=== PATIENT | female | born 1940 | race Caucasian/White ===

== ENCOUNTER 2016-09-16 11:16 | Day surgery (SDC) | payer OTHER, MEDICARE ==
[~2016-09-16] VITALS: Ht 170.2 cm; Wt 75.7 kg
[~2016-09-16 11:16] MED LIST: AMARYL4 MG PO; ASPIR 8181 M1 PO; BENTYL20 MG PO; CALTRATE 600 +1 EAC1 PO; CENTRUM SILVER1 EAC4 PO; CIPRO500 MG PO; COZAAR25 MG PO; DICYCLOMINE HCL20 MG PO; FLONASE16 G1 BOTH NARES; GLIMEPIRIDE2 MG PO; GLIMEPIRIDE4 MG PO; GLUCOPHAGE1000 MG PO; JANUMET 50/11 TABLET PO; JANUMET XR 1001 EACH PO; LEVOTHYROXINE50 MCG PO; LOSARTAN POTASS25 MG PO; MECLIZINE HCL25 MG PO; METFORMIN HCL1000 MG PO; METHENAMINE HIPP1 G1 PO; METOPROLOL TART25 MG PO; NAPROSYN500 MG PO; NITROSTAT0.4 MG SL; OMEPRAZOLE20 MG PO; PRAVACHOL80 MG PO; PRAVASTATIN SOD80 MG PO; PRILOSEC20 MG PO; REFRESH EYE DR1 EACH BOTH EYES; REFRESH TEARS15 ML BOTH EYES; REQUIP0.25 MG PO; SYNTHROID50 MCG PO; TYLENOL EXTRA500 MG PO; VALIUM5 MG PO; ZOFRAN4 MG PO
[2016-09-16] MEDS ORDERED: JANUMET 50/11 TABLET PO (12:30)
[2016-09-16] MEDS ORDERED: VITAMIN D-32000 UNI2 PO (12:31)
[2016-09-16] MEDS ORDERED: CITRACAL + D C1 EACH PO (12:32)
[2016-09-16] MEDS ORDERED: TRIPLE MAGNESI400 MG PO (12:33)
[2016-09-16 12:37] LABS: POINT-OF-CARE METER ID UU13113696
[2016-09-16 14:47] LABS: POINT-OF-CARE METER ID UU13113819
[2016-09-16 16:33] VITALS: BP 125/58
[2016-09-16 16:38] VITALS: BP 125/58
[2016-09-16 16:45] VITALS: BP 125/58
[2016-09-16 18:05] LABS: POINT-OF-CARE METER ID UU13113698
[2016-09-16 19:06] VITALS: BP 113/57
[2016-09-16 21:26] LABS: POINT-OF-CARE METER ID UU13113698
[2016-09-16 23:43] VITALS: BP 110/58
[2016-09-17 05:00] VITALS: BP 115/56
[2016-09-17 07:30] VITALS: BP 122/63
[2016-09-17 07:48] LABS: POINT-OF-CARE METER ID UU13113698
== END 2016-09-17 11:45 | disposition home or self-care (01) ==
LOC: CATH 11:16 → 2SOUTH 14:11 → 4EAST 14:11 → 2SOUTH 14:11 → 4EAST 16:15
PROVIDERS: Internal Medicine Cardiovascular Disease
DX: R07.9 Chest pain, unspecified (principal); I25.10 Atherosclerotic heart disease of native coronary artery without angina pectoris; I25.82 Chronic total occlusion of coronary artery; R00.2 Palpitations; R00.0 Tachycardia, unspecified; E11.9 Type 2 diabetes mellitus without complications; I10 Essential (primary) hypertension; E78.00 Pure hypercholesterolemia, unspecified; Z86.718 Personal history of other venous thrombosis and embolism; R06.09 Other forms of dyspnea; M54.2 Cervicalgia; R94.39 Abnormal result of other cardiovascular function study; E03.9 Hypothyroidism, unspecified; K58.9 Irritable bowel syndrome, unspecified; I34.1 Nonrheumatic mitral (valve) prolapse; Z79.82 Long term (current) use of aspirin; Z79.4 Long term (current) use of insulin; Z87.891 Personal history of nicotine dependence
CPT/HCPCS: 82948; 85347; C1769; C1887; G0378; J0153; J1200; J1644; J1815; J2250; J2405; J3010; J7040

== ENCOUNTER 2017-06-23 11:19 | Emergency (ER) | payer OTHER, MEDICARE ==
[~2017-06-23] VITALS: Ht 167.6 cm; Wt 69.5 kg
[~2017-06-23 11:19] MED LIST changes: +CITRACAL + D C1 EACH PO; +TRIPLE MAGNESI400 MG PO; +VITAMIN D-32000 UNI2 PO
[2017-06-23 12:39] LABS: HEMATOCRIT 42.6 % (36.0-46.0); HEMOGLOBIN 14.4 G/DL (11.9-15.5); MCH 31.4 PG (29.0-34.0); MCHC 33.8 G/DL (30.0-36.0); MCV 92.8 FL (83-99); PLATELET COUNT 284 K/uL (156-360); RBC DIS.WIDTH-CV 12.9 % (11.8-14.6); RED BLOOD COUNT 4.59 M/uL (3.80-5.20); WHITE BLOOD COUNT 6.3 K/uL (4.1-10.2)
[2017-06-23 12:46] LABS: ALBUMIN 3.9 g/dL (3.2-4.8); CHLORIDE 103 mEq/L (99-109); POTASSIUM 4.1 mEq/L (3.7-5.4); SODIUM 138 mEq/L (136-147)
[2017-06-23 12:48] LABS: GLUCOSE 149 mg/dL (70-99); TOTAL PROTEIN 7.1 g/dL (6.4-8.3)
[2017-06-23 12:50] LABS: TOTAL BILIRUBIN 0.3 mg/dL (0.0-1.0)
[2017-06-23 12:52] LABS: ALKALINE PHOSPHATASE 89 IU/L (3-129); CREATININE 0.8 mg/dL (0.6-1.3); GFR ESTIMATE (CALCULATED) > 59 mL/min/
[2017-06-23 12:53] LABS: AST (GOT) 17 IU/L (2-34); UREA NITROGEN (BUN) 21 mg/dL (9-23)
[2017-06-23 12:55] LABS: ALT (GPT) 20 IU/L (3-49)
[2017-06-23 14:17] LABS: LIPASE 26 U/L (1.0-51.0)
[2017-06-23 15:42] LABS: APPEARANCE CLOUDY ((CLEAR)); BILIRUBIN NEGATIVE; BLOOD SMALL; COLOR YELLOW ((YELLOW)); GLUCOSE (STRIP) NEGATIVE; KETONES 5; LEUKOCYTES LARGE; NITRITE NEGATIVE; PROTEIN (STRIP) 30; SPECIFIC GRAVITY 1.023 (1.000-1.030); UROBILINOGEN 0.2 MG/DL (0.2-1.0)
[2017-06-23 16:04] LABS: EPITHELIAL CELLS 2+ /HPF; MUCUS 1+ /LPF
[2017-06-23 16:06] LABS: BACTERIA NONE SEEN /HPF; RED BLOOD CELLS 0-5 /HPF (0-5); UCUL ADDED? YES; WHITE BLOOD CELLS TNTC /HPF (0-5)
[2017-06-23 17:17] VITALS: BP 118/60
== END 2017-06-23 17:18 | disposition home or self-care (01) ==
LOC: EME 11:19
DX: R30.0 Dysuria (principal); K57.30 Diverticulosis of large intestine without perforation or abscess without bleeding; K21.9 Gastro-esophageal reflux disease without esophagitis; E11.9 Type 2 diabetes mellitus without complications; Z87.440 Personal history of urinary (tract) infections; Z87.891 Personal history of nicotine dependence; Z79.84 Long term (current) use of oral hypoglycemic drugs; Z90.49 Acquired absence of other specified parts of digestive tract; Z88.5 Allergy status to narcotic agent
CPT/HCPCS: 74177; 80053; 81003; 83690; 85027; 87086; 99281; 99284; J2405; J7030